=== PATIENT | female | born 1960 | race Caucasian/White ===

== ENCOUNTER → 2019-11-02 | Outpatient (CLI) | payer OTHER ==
--- NOTE | 2019-11-02 13:41 | Diagnostic Imaging Report ---
CHEST PA/LAT (2 VIEW) Indication: Shortness of breath and wheezing Comparison: None available. Findings: No pulmonary mass or consolidation. Biapical subpleural scarring is present. No pleural effusion or pneumothorax. Normal heart size and mediastinal contours. Impression: No acute cardiopulmonary process. Dictated by: Dictated on workstation # [id number]
== END ==
LOC: RAD FS 13:00
PROVIDERS: ATTEND Nurse Practitioner Family
DX: R06.02 Shortness of breath (principal); R06.2 Wheezing
CPT/HCPCS: 71046

== ENCOUNTER → 2021-05-08 | Outpatient (CLI) | payer OTHER ==
--- NOTE | 2021-05-08 14:15 | Diagnostic Imaging Report ---
EXAMINATION: Chest 2 view HISTORY: Cough, weakness, fever COMPARISON: 11/02/2019 FINDINGS: Heart size and pulmonary vasculature are normal. The lungs are clear without consolidation, pleural effusion, or pneumothorax. The osseous structures are intact. IMPRESSION: 1. No acute radiographic abnormality in the chest. Dictated by: Dictated on workstation # [id number]
== END ==
LOC: RAD FS 12:00
PROVIDERS: ATTEND Family Medicine
DX: R05 Cough (principal); R50.9 Fever, unspecified; R53.1 Weakness
CPT/HCPCS: 71046

== ENCOUNTER 2022-10-11 09:13 | Emergency (ER) | payer OTHER ==
[~2022-10-11] VITALS: Ht 165.1 cm; Wt 61.2 kg
[2022-10-11 09:16] VITALS: BP 160/103
--- NOTE | 2022-10-11 09:36 | ED Neurological Problem ---
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 PT DENIES PAIN/WEAKNESS. Source: patient Exam Limitations: no limitations History of Present Illness Date Seen by Provider: Oct 11, 2022 Time Seen by Provider: 09:15 Initial Comments 62-year-old female with past medical history of tobacco use coming in due to right hand tingling and right foot tingling which is significantly less. Started about an hour prior to arrival with her right hand tingling in her thumb, pointer finger, and long finger. This is never happened before. 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 When she left work because of the hand tingling, she got to thinking if she was affected anywhere else, and felt like her right foot could be tingling as well. She has been ambulating, no weakness, no headache, vision changes, voice changes, chest pain, shortness of breath, fever, chills, nausea, vomiting, diarrhea, dysuria, urinary frequency, or any other concerns. She does not take any medicines except for urinary issues. Allergies and Home Medications Allergies Coded Allergies: Sulfa (Sulfonamide Antibiotics) (Verified Allergy, Unknown, 10/11/22) Patient Home Medication List Home Medication List Reviewed: Yes Review of Systems Review of Systems Constitutional: No fever Eyes: No Symptoms Reported Ears, Nose, Mouth, Throat: no symptoms reported Respiratory: no symptoms reported Cardiovascular: no symptoms reported Gastrointestinal: no symptoms reported Genitourinary: no symptoms reported Musculoskeletal: no symptoms reported Skin: no symptoms reported Psychiatric/Neurological: See HPI Endocrine: No Symptoms Reported Hematologic/Lymphatic: No Symptoms Reported All Other Systems Reviewed Negative Unless Noted: Yes Past Cbroqvh-Lhzzgt-Erqoav Hx Patient Social History Tobacco Use?: Yes Tobacco type used: Cigarettes Smoking Status: Heavy Tobacco Smoker Smokeless Tobacco Frequency: Never a User Use of E-Cig and/or Vaping dev: No Use of E-Cig and/or Vaping Shashank: Never a User Substance use?: No Alcohol Use?: No Pt feels they are or have been: No Physical Exam Vital Signs Vital Signs - First Documented Capillary Refill : Less Than 3 Seconds Height, Weight, BMI Height: '" Weight: lbs. oz. kg; 22.00 BMI Method: General Appearance: WD/WN, no apparent distress HEENT: PERRL/EOMI, normal ENT inspection, pharynx normal Neck: non-tender, full range of motion, supple, normal inspection Respiratory: chest non-tender, lungs clear, normal breath sounds, no respiratory distress, no accessory muscle use Cardiovascular: regular rate, rhythm, no edema, no murmur Gastrointestinal: normal bowel sounds, non tender, soft; No distended, No guarding, No rebound Back: normal inspection, no CVA tenderness, no vertebral tenderness Extremities: normal range of motion, non-tender, normal inspection, no pedal edema, no calf tenderness, normal capillary refill 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, no motor/sensory deficits, alert, normal mood/affect, oriented x 3, other (Positive Tinel tap and Phalen flap recreating her symptoms of tingling in right thumb through middle finger) Crainal Nerves: normal hearing, normal speech, PERRL Coordination/Gait: normal finger to nose, normal gait Motor/Sensory: no motor deficit, no sensory deficit, no pronator drift Skin: normal color, warm/dry Lymphatic: no adenopathy Stroke Onset of Symptoms Date of Onset of Symptoms: Oct 11, 2022 Time of Symptom Onset: 08:20 Onset of Symptoms: Yes NIH Stroke Scale Assessment Select: Initial Level of Consciousness: 0=Alert (0), Level of Consciousness- Questions: 0=Answers both month/age (0), LOC Commands: 0=Performs both tasks (0), Gaze: Normal (0), Visual Mcqueen: 0=No visual loss (0), Facial Movement (Facial Paresis): 0=Normal symmetrical mnt (0), Motor Function-Arms Right: 0=No drift (0), Motor Function-Arms Left: 0=No drift (0), Motor Function-Legs Right: 0=No drift (0), Motor Function-Legs Left: 0=No drift (0), Limb Ataxia: 0=Absent (0), Sensory: 0=Normal:no loss (0), Best Language: 0=No aphasia (0), Dysarthria: 0=Normal (0), Extinction & Inattention: 0=No abnormality (0), Total: 0 Stroke Thrombolytic Exclusion TPA Contraindication: Yes (NIH of 0) IV - TPa Received IV - TPa Procedure Performed?: No Progress/Results/Core Measures Results/Orders Lab Results Laboratory Tests Test 10/11/22 09:30 Range/Units White Blood Count 7.8 4.3-11.0 10^3/uL Red Blood Count 4.31 3.80-5.11 10^6/uL Hemoglobin 13.6 11.5-16.0 g/dL Hematocrit 40 35-52 % Mean Corpuscular Volume 92 80-99 fL Mean Corpuscular Hemoglobin 32 25-34 pg Mean Corpuscular Hemoglobin Concent 34 32-36 g/dL Red Cell Distribution Width 13.2 10.0-14.5 % Platelet Count 327 130-400 10^3/uL Mean Platelet Volume 9.4 9.0-12.2 fL Immature Granulocyte % (Auto) 0 % Neutrophils (%) (Auto) 45 42-75 % Lymphocytes (%) (Auto) 46 H 12-44 % Monocytes (%) (Auto) 7 0-12 % Eosinophils (%) (Auto) 1 0-10 % Basophils (%) (Auto) 1 0-10 % Neutrophils # (Auto) 3.5 1.8-7.8 10^3/uL Lymphocytes # (Auto) 3.6 1.0-4.0 10^3/uL Monocytes # (Auto) 0.6 0.0-1.0 10^3/uL Eosinophils # (Auto) 0.1 0.0-0.3 10^3/uL Basophils # (Auto) 0.1 0.0-0.1 10^3/uL Immature Granulocyte # (Auto) 0.0 0.0-0.1 10^3/uL Prothrombin Time 12.3 12.2-14.7 SEC INR Comment 0.9 0.8-1.4 Activated Partial Thromboplast Time 29 24-35 SEC Sodium Level 134 L 135-145 MMOL/L Potassium Level 3.9 3.6-5.0 MMOL/L Chloride Level 98 98-107 MMOL/L Carbon Dioxide Level 24 21-32 MMOL/L Anion Gap 12 5-14 MMOL/L Blood Urea Nitrogen 9 7-18 MG/DL Creatinine 0.80 0.60-1.30 MG/DL Estimat Glomerular Filtration Rate 82 BUN/Creatinine Ratio 11 Glucose Level 100 70-105 MG/DL Calcium Level 9.8 8.5-10.1 MG/DL Corrected Calcium 8.5-10.1 MG/DL Total Bilirubin 0.5 0.1-1.0 MG/DL Aspartate Amino Transf (AST/SGOT) 23 5-34 U/L Alanine Aminotransferase (ALT/SGPT) 21 0-55 U/L Alkaline Phosphatase 94 40-136 U/L Troponin I < 0.30 <0.30 NG/ML Total Protein 7.9 6.4-8.2 GM/DL Albumin 4.8 H 3.2-4.5 GM/DL My Orders Orders - ANGY DOMINGO MD Cbc With Automated Diff (10/11/22 09:28) Protime With Inr (10/11/22:28) Partial Thromboplastin Time (10/11/22 09:28) Comprehensive Metabolic Panel (10/11/22 09:28) Troponin I Fs (10/11/22 09:28) Chest 1 View Ap/Pa Only (10/11/22 09:28) Ekg Tracing (10/11/22 09:28) Ed Iv/Invasive Line Start (10/11/22 09:28) Vital Signs Stroke Patient Q15M (10/11/22 09:28) Ct Head Wo-R/O Stroke (10/11/22 09:28) O2 (10/11/22 09:28) Monitor-Rhythm Ecg Trace Only (10/11/22 09:28) Dysphagia Screening Tool Q10MX1 (10/11/22 09:28) Vital Signs/I&O 10/11/22 10/11/22 10/11/22 09:16 09:16 09:16 Temp 36.1 Pulse 87 87 Resp 17 17 B/P (MAP) 160/103 (122) 160/103 Pulse Ox 95 95 O2 Delivery Room Air Room Air Blood Pressure Mean: 122 Progress Progress Note : Progress Note 62yoF with above history coming in due to tingling. ABCs intact and VSS on presentation. NIH is 0 on presentation so TPA not given. Her exam on her hand is consistent with carpel tunnel syndrome. The patient was not having any finding on her leg on my exam, but she states there was some foot tingling earlier. Symptoms not really consistent with CVA/TIA. No chest pain, normal peripheral pulses, normal mediastinum on chest x-ray, and overall I believe a dissection is highly unlikely so CTA was not obtained. EKG on my interpretation normal sinus rhythm with no acute ischemic changes. CT head with no acute changes as well. Once again, I believe symptoms are more consistent with a peripheral nerve injury to her median nerve consistent with carpal tunnel. I believe she is otherwise stable for discharge with outpatient follow-up. She was sent home with strict return precautions. Initial ECG Impression Date: Oct 11, 2022 Initial ECG Impression Time: 09:35 Initial ECG Rate: 60 Initial ECG Rhythm: Normal Sinus Comment Narrow QRS, normal axis, no significant ST changes or T wave abnormalities Diagnostic Imaging Diagonstic Imaging: Xray (chest), CT (head) Comments [facility] [place] NAME: GERRIYOSHI Celaton [facility] REC#: [id number] PT STATUS: REG ER : 1960 PHYSICIAN: ANGY DOMINGO MD ADMIT DATE: 10/11/22/ER FS Draft Date of Exam:10/11/22 CT HEAD WO-R/O STROKE PROCEDURE: CT head wo r/o stroke. TECHNIQUE: Multiple contiguous axial images were obtained through the brain without the use of intravenous contrast. Auto Exposure Controls were utilized during the CT exam to meet ALARA standards for radiation dose reduction. INDICATION: Right-sided weakness and numbness. No prior studies are available for comparison. FINDINGS: Ventricles and sulci are within normal limits. No sulcal effacement or midline shift is identified. No acute intra-axial or extra-axial hemorrhage is detected. Cisterns are patent. Visualized paranasal sinuses are clear. IMPRESSION: No acute intracranial process is detected. Dictated on workstation # [id number] Dict: 10/11/22 0943 Trans: 10/11/22 0945 [id number] Interpreted by: ISABELLA STREET MD Electronically signed by: [facility] [place] HealthKE[place], [place] NAME: GERRIYOSHI Celaton [facility] REC#: [id number] PT STATUS: REG ER : 1960 PHYSICIAN: ANGY DOMINGO MD ADMIT DATE: 10/11/22/ER FS Signed Date of Exam:10/11/22 CHEST 1 VIEW AP/PA ONLY EXAMINATION: Chest 1 view HISTORY: R side weakness and numbness COMPARISON: 05/08/2021 FINDINGS: Heart size and pulmonary vasculature are normal. The lungs are clear without consolidation, pleural effusion, or pneumothorax. The osseous structures are intact. IMPRESSION: 1. No acute radiographic abnormality in the chest. Dictated by: Dictated on workstation # [id number] Dict: 10/11/22 0954 Trans: 10/11/22 1014 ROMINA [id number] Interpreted by: ZAFAR WOLF DO Electronically signed by: ZAFAR WOLF DO 10/11/22 1014 Departure Impression Primary Impression: Carpal tunnel syndrome of right wrist Disposition: HOME, SELF-CARE Condition: Stable Departure-Patient Inst. Referrals: JACKSON MARI MD (PCP/Family) Primary Care Physician RHEA MILLER MD Patient Instructions: Carpal Tunnel Syndrome (DC) Add. Discharge Instructions: Your exam on your hand is consistent with carpal tunnel syndrome. I want you to buy a wrist splint that you can get [id number] at most stores. Wear it at least at nighttime, if you have symptoms in the daytime, then wear it then too. Please follow-up with an orthopedist such as Dr. Miller in [place], who/s number is in this paperwork if symptoms persist. Work/School Note: Work Release Form Date Seen in the Emergency Department: Oct 11, 2022 Return to Work: Oct 12, 2022 Restrictions: No Restrictions ANGY DOMINGO MD Oct 11, 2022 09:36
--- NOTE | 2022-10-11 09:45 | Diagnostic Imaging Report ---
PROCEDURE: CT head wo r/o stroke. TECHNIQUE: Multiple contiguous axial images were obtained through the brain without the use of intravenous contrast. Auto Exposure Controls were utilized during the CT exam to meet ALARA standards for radiation dose reduction. INDICATION: Right-sided weakness and numbness. No prior studies are available for comparison. FINDINGS: Ventricles and sulci are within normal limits. No sulcal effacement or midline shift is identified. No acute intra-axial or extra-axial hemorrhage is detected. Cisterns are patent. Visualized paranasal sinuses are clear. IMPRESSION: No acute intracranial process is detected. Dictated by: Dictated on workstation # [id number]
[2022-10-11 10:04] LABS: BASOPHILS # (AUTO) 0.1 10^3/uL (0.0-0.1); BASOPHILS % (AUTO) 1 % (0-10); EOSINOPHILS # (AUTO) 0.1 10^3/uL (0.0-0.3); EOSINOPHILS % (AUTO) 1 % (0-10); HEMATOCRIT 40 % (35-52); HEMOGLOBIN 13.6 g/dL (11.5-16.0); LYMPHOCYTES # (AUTO) 3.6 10^3/uL (1.0-4.0); LYMPHOCYTES % (AUTO) 46 % (12-44); MEAN CORPUSCULAR HEMOGLOBIN 32 pg (25-34); MEAN CORPUSCULAR HGB CONC 34 g/dL (32-36); MEAN CORPUSCULAR VOLUME 92 fL (80-99); MEAN PLATELET VOLUME 9.4 fL (9.0-12.2); MONOCYTES # (AUTO) 0.6 10^3/uL (0.0-1.0); MONOCYTES % (AUTO) 7 % (0-12); NEUTROPHILS # (AUTO) 3.5 10^3/uL (1.8-7.8); NEUTROPHILS % (AUTO) 45 % (42-75); PLATELET COUNT 327 10^3/uL (130-400); WHITE BLOOD COUNT 7.8 10^3/uL (4.3-11.0)
[2022-10-11 10:08] LABS: CARBON DIOXIDE 24 MMOL/L (21-32); CHLORIDE 98 MMOL/L (98-107); POTASSIUM 3.9 MMOL/L (3.6-5.0); SODIUM 134 MMOL/L (135-145)
[2022-10-11 10:09] LABS: ALANINE AMINOTRANSFERASE 21 U/L (0-55); ALBUMIN 4.8 GM/DL (3.2-4.5); ALKALINE PHOSPHATASE 94 U/L (40-136); BILIRUBIN,TOTAL 0.5 MG/DL (0.1-1.0); BUN/CREATININE RATIO 11; CALCIUM 9.8 MG/DL (8.5-10.1); GFR ESTIMATED 82; GLUCOSE 100 MG/DL (70-105); TOTAL PROTEIN 7.9 GM/DL (6.4-8.2)
[2022-10-11 10:10] LABS: INR 0.9 (0.8-1.4); PROTHROMBIN TIME PATIENT 12.3 SEC (12.2-14.7)
--- NOTE | 2022-10-11 10:12 | Diagnostic Imaging Report ---
EXAMINATION: Chest 1 view HISTORY: R side weakness and numbness COMPARISON: 05/08/2021 FINDINGS: Heart size and pulmonary vasculature are normal. The lungs are clear without consolidation, pleural effusion, or pneumothorax. The osseous structures are intact. IMPRESSION: 1. No acute radiographic abnormality in the chest. Dictated by: Dictated on workstation # [id number]
[2022-10-11 10:20] VITALS: BP 134/76
== END 2022-10-11 10:20 | disposition home or self-care (01) ==
LOC: EDUNIT# 09:13 → ER FS 09:14
DX: G56.01 Carpal tunnel syndrome, right upper limb (principal); F17.210 Nicotine dependence, cigarettes, uncomplicated; Z28.310 Unvaccinated for COVID-19
CPT/HCPCS: 36415; 70450; 71045; 80053; 84484; 85025; 85610; 85730; 93005; 93041

== ENCOUNTER 2023-03-20 09:20 | Outpatient (RCR) | payer OTHER | END 2023-03-22 | disposition home or self-care (01) | LOC: ONC 09:20 | PROVIDERS: ATTEND Internal Medicine Hematology & Oncology | DX: Z53.9 Procedure and treatment not carried out, unspecified reason (principal) ==

== ENCOUNTER 2023-04-18 10:17 | Outpatient (RCR) | payer OTHER | END 2023-04-22 | disposition home or self-care (01) | LOC: ONC 10:17 | PROVIDERS: ATTEND Radiology Radiation Oncology | DX: D05.12 Intraductal carcinoma in situ of left breast (principal) | CPT/HCPCS: 99205 ==

== ENCOUNTER → 2023-05-23 | Outpatient (RCR) | payer OTHER | END | disposition home or self-care (01) | LOC: ONC 04-25 14:08 | PROVIDERS: ATTEND Radiology Radiation Oncology | DX: D05.10 Intraductal carcinoma in situ of unspecified breast (principal); Z72.0 Tobacco use | CPT/HCPCS: 77280; 77290; 77295; 77300; 77307; 77334; 77336; 77417 ==